=== PATIENT | female | born 1965 | race Caucasian/White ===

== ENCOUNTER 2024-02-11 21:55 | Emergency (ER) | payer OTHER ==
[2024-02-11 22:38] LABS: BASOPHILS % (AUTO) 0.4 %; EOSINOPHILS # (AUTO) 0.2 10^3/uL (0.0-0.7); EOSINOPHILS % (AUTO) 1.7 %; HGB - HEMOGLOBIN 12.4 g/dL (12.0-16.0); LYMPHOCYTES # (AUTO) 1.8 10^3/uL (1.5-3.5); LYMPHOCYTES % (AUTO) 18.4 %; MEAN CORPUSCULAR HEMOGLOBIN 29.8 pg (27.0-31.0); MEAN CORPUSCULAR HGB CONC 32.6 g/dL (32.0-36.0); MEAN CORPUSCULAR VOLUME 91.3 fL (81.0-99.0); MEAN PLATELET VOLUME 9.3 fL (7.9-10.8); MONOCYTES # (AUTO) 0.8 10^3/uL (0.0-1.0); MONOCYTES % (AUTO) 8.2 %; NEUTROPHILS # (AUTO) 6.8 10^3/uL (1.5-6.6); PLT - PLATELET COUNT 268 10^3/uL (130-450); RED BLOOD COUNT 4.16 10^6/uL (4.20-5.40); RED CELL DISTRIBUTION WIDTH 12.6 % (12.0-15.0); WHITE BLOOD COUNT 9.6 x10^3/uL (4.8-10.8)
[2024-02-11 22:52] LABS: ALBUMIN 4.3 g/dL (3.2-5.5); ALBUMIN/GLOBULIN RATIO 1.5 (1.0-2.2); ALKALINE PHOSPHATASE 40 IU/L (42-121); ALT ALANINE AMINOTRANSFERASE 21 IU/L (10-60); AST ASPARTATE AMINOTRANSFERASE 16 IU/L (10-42); BILIRUBIN,TOTAL 0.7 mg/dL (0.2-1.0); BUN - BLOOD UREA NITROGEN 9 mg/dL (6-20); CALCIUM 9.8 mg/dL (8.5-10.3); CARBON DIOXIDE - CO2 24 mmol/L (21-32); CHLORIDE 103 mmol/L (101-111); CREATININE 0.6 mg/dL (0.6-1.3); GFR - MDRD 103 (>89); GLUCOSE 114 mg/dL (74-104); POTASSIUM 3.4 mmol/L (3.5-4.5); SODIUM 136 mmol/L (135-145); TOTAL PROTEIN 7.1 g/dL (6.4-8.9)
[2024-02-11 22:53] LABS: LIPASE < 10 U/L (11-82)
--- NOTE | 2024-02-11 23:03 | ED Physician Documentation ---
PD HPI ABD PAIN - Stated complaint Stated Complaint: - Chief complaint Chief Complaint: Abd Pain - History obtained from History obtained from: Patient - Additional information Additional information: 58-year-old female with reported history of colitis presents for 2 days of generalized abdominal pain with diarrhea. Patient states that it feels like razor blades are in her abdomen. Diarrhea has some drops of blood present when she goes to the bathroom. Patient states that she woke up in the middle of the night and she had made a mess on herself from the diarrhea. Denies use of blood thinners. States that she has been eating a lot of dairy products lately because she has been craving [place] yogurt. States that her last colonoscopy was 5 years ago, she is scheduled for another colonoscopy in 2 weeks with her GI team. Review of Systems Constitutional: denies: Fever, Chills GI: reports: Abdominal Pain, Diarrhea. 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 ADJUSTER: Hysterectomy - Present Medications Home Medications: Ambulatory Orders Medication Instructions Recorded Confirmed Hyoscyamine [Levsin] 0.125 mg SL AC PRN #30 tablet 02/12/24 - Allergies Allergies/Adverse Reactions: Allergies Allergy/AdvReac Type Severity Reaction Status Date / Time adhesive Allergy Rash Verified 02/11/24 22:11 - Social History Does the pt smoke?: No Smoking Status: Never smoker Does the pt drink ETOH?: No Does the pt have substance abuse?: No PD ED PE NORMAL - Vitals Vital signs reviewed: Yes - General General: Alert and oriented X 3, No acute distress, Well developed/nourished - Cardiac Cardiac: RRR, Strong equal pulses - Respiratory Respiratory: No respiratory distress, Clear bilaterally - Abdomen Abdomen: Soft, Non distended, Other (Generalized tenderness to deep palpation without rebound or guarding) - Derm Derm: Normal color, Warm and dry, No rash - Neuro Neuro: Alert and oriented X 3, 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, No motor deficit, Normal speech Results - Vitals Vitals: Oxygen O2 Source Room air - Labs Labs: Laboratory Tests 02/11/24 02/11/24 02/11/24 22:36 22:36 23:04 WBC 9.6 RBC 4.16 L Hgb 12.4 Hct 38.0 MCV 91.3 MCH 29.8 MCHC 32.6 RDW 12.6 Plt Count 268 MPV 9.3 Neut # (Auto) 6.8 H Lymph # (Auto) 1.8 [place] # (Auto) 0.8 Eos # (Auto) 0.2 Baso # (Auto) 0.0 Absolute Nucleated RBC 0.00 Nucleated RBC % 0.0 Sodium 136 Potassium 3.4 L Chloride 103 Carbon Dioxide 24 Anion Gap 9.0 BUN 9 Creatinine 0.6 Estimated GFR (MDRD) 103 Glucose 114 H Calcium 9.8 Total Bilirubin 0.7 AST 16 ALT 21 Alkaline Phosphatase 40 L Total Protein 7.1 Albumin 4.3 Globulin 2.8 Albumin/Globulin Ratio 1.5 Lipase < 10 L Urine Color YELLOW Urine Clarity CLEAR Urine pH 6.0 Ur Specific [place] 1.010 Urine Protein NEGATIVE Urine Glucose (UA) NEGATIVE Urine Ketones NEGATIVE Urine Occult Blood TRACE-INTA Urine Nitrite NEGATIVE Urine Bilirubin NEGATIVE Urine Urobilinogen 0.2 (NORMAL) Ur Leukocyte Esterase NEGATIVE Ur Microscopic Review NOT INDICATED Urine Culture Comments NOT INDICATED PD Medical Decision Making - ED course Complexity details: reviewed results, re-evaluated patient, considered differential, d/w patient ED course: 2 days of generalized abdominal pain with some blood in her diarrhea. Abdomen is soft, generally tender to palpation without focality, no rebound or guarding. Laboratory work and imaging ordered. Laboratory work reviewed, no significant abnormalities identified. Patient's hemoglobin is within normal limits. CT of the abdomen pelvis shows no acute findings to explain patient's symptoms. No evidence of inflammation, infection, obstruction, or masses. Patient informed of lab and imaging findings. Recommended that she have close follow-up with her GI team and reach out to them to see if she cannot move her colonoscopy forward in time. Patient states that she thinks that the increase in dairy may be contributing to her symptoms and will also attempt to cut out dairy products to see if this improves her symptoms. ED return precautions discussed. Departure - Departure Disposition: 01 Home, Self Care Clinical Impression: Abdominal pain Condition: Stable Instructions: Abdominal Pain Prescriptions: Hyoscyamine [Levsin] 0.125 mg SL AC PRN #30 tablet PRN Reason: Abdominal Pain Comments: Your laboratory work and CT imaging today were reassuring. I do not know the cause of your abdominal pain but it does not look as though this is a flareup of colitis, infection, or obstruction. Follow up with gastroenterology or your primary care doctor. A medication for abdominal cramping and spasms has been sent to the [facility] in [place]. You may try this medication to see if this helps your symptoms. Forms: PCP List Discharge Date/Time: 02/12/24 00:46
[2024-02-11 23:17] LABS: BILIRUBIN,URINE NEGATIVE (NEGATIVE); GLUCOSE, URINE (UA) NEGATIVE (NEGATIVE); KETONES,URINE (UA) NEGATIVE (NEGATIVE); LEUKOCYTE ESTERASE, URINE NEGATIVE (NEGATIVE); NITRITE,URINE NEGATIVE (NEGATIVE); OCCULT BLOOD,URINE TRACE-INTA (NEGATIVE); PROTEIN,URINE NEGATIVE (NEGATIVE); UROBILINOGEN,URINE 0.2 (NORMAL) E.U./dL (NORMAL)
[2024-02-11 23:20] LABS: CLARITY,URINE CLEAR (CLEAR)
[2024-02-11] MEDS ORDERED: iohexoL-300 100 ML VIAL ONE (23:34)
[2024-02-11] MEDS: iohexoL-300 100 ML VIAL IVP ONE (23:59)
[2024-02-12 00:19] VITALS: BP 132/81; O2SAT 99
--- NOTE | 2024-02-12 00:30 | CT Report ---
PROCEDURE: Abdomen/Pelvis W INDICATIONS: GEN ABD PAIN, BLOOD IN DIARRHEA CONTRAST: 100 ML OMNI 300 TECHNIQUE: After the administration of intravenous contrast, a CT scan of the abdomen and pelvis was performed. Images were recorded and evaluated at appropriate window settings. Reformats: coronal and sagittal. F or radiation dose reduction, the following was used: automated exposure control, adjustment of mA and /or kV according to patient size. COMPARISON: None. FINDINGS: Image quality: Diagnostic. Lower chest: Unremarkable. Liver: No solid mass. Gallbladder: Surgically absent. Biliary tree: No intrahepatic or extrahepatic dilation, accounting for age. Spleen: No splenomegaly. Hypodense focus which likely represents a cyst or hemangioma. Pancreas: No pancreatic ductal dilation. Adrenals: No adrenal nodule. Kidneys and ureters: No hydronephrosis. No renal cystic lesion which requires follow up. No solid mas s. Stomach, bowel and peritoneum: No gastric or small bowel dilation. No abnormal wall thickening. Sever al areas of fat density within the bowel. Medication tablets in the left abdomen small bowel. No path ologic free fluid. Normal appendix. Lymph nodes: No central or retroperitoneal adenopathy. Vessels: No infrarenal aortic aneurysm. Patent portal vein. PELVIS Reproductive organs: Unremarkable. Bladder: No abnormal wall thickening, accounting for underdistention. Pelvic lymph nodes: No pelvic adenopathy by size criteria. Bones: No aggressive osseous abnormality. Other: No significant ventral or inguinal hernia. IMPRESSION: No acute abnormality identified. No free fluid. Reviewed by: Jamaal Mcmanus MD on 02/12/2024 12:28 AM PDT Approved by: Jamaal Mcmanus MD on 02/12/2024 12:28 AM PDT Station ID: [id number]
== END 2024-02-12 00:46 | disposition home or self-care (01) ==
LOC: ED 21:55
DX: R10.84 Generalized abdominal pain (principal); R19.7 Diarrhea, unspecified; K92.1 Melena
CPT/HCPCS: 36415; 74177; 80053; 81003; 83690; 85025; 99283; 99284; Q9967; 81001; 87086